=== PATIENT | female | born 1970 | race Caucasian/White ===

== ENCOUNTER 2016-11-24 10:37 | Emergency (ER) | payer SELFPAY ==
[~2016-11-24] VITALS: Ht 157.5 cm; Wt 55.9 kg
[~2016-11-24 10:37] MED LIST: ALPR2TAB3 PO; MACR100C PO; TRIA.1%T TOP
[2016-11-24 10:44] VITALS: BP 118/66; PULSE 86; RESP 16; TEMP 97.9; O2SAT 99
[2016-11-24] MEDS ORDERED: SODIUM CHLOR 0.9% 1000 ML INJ 1,000 ML IV ONE (12:15)
[2016-11-24] MEDS ORDERED: ONDANSETRON HCL 4 MG/2 ML VIAL IV PUSH ONE (12:15)
--- NOTE | 2016-11-24 12:19 | PD ---
HPI Chief Complaint: GI Complaint Time Seen by Provider: 11:57 Travel History International Travel<30 days: No Contact w/Intl Traveler<30days: No Traveled to known affect area: No History of Present Illness HPI 46-year-old female complains of headache, dizziness, nausea vomiting, generalized malaise and weakness. Patient states that the symptoms started 3 days ago. Patient states that the headache is mild aching headache diffuse over the head. Patient denies any visual change. Patient denies any neck pain. Patient denies any chest pain or shortness of breath. Patient denies abdominal pain. Patient states that she has intermittent nausea vomiting. Patient denies any focal weakness and numbness of deformity. Patient denies any recent injury. Patient denies any dysuria or frequency. Patient denies any vaginal discharge or bleeding. PFSH Past Medical History Arthritis: Yes Blood Disorders: No Anxiety: Yes Depression: Yes Cancer: No Cardiovascular Problems: No High Cholesterol: Yes Diminished Hearing: No Endocrine: No Gastrointestinal Disorders: Yes (GASTROPARESIS,HISTORY OF INTESTINAL OBSTRUCTION) GERD: Yes Genitourinary: No Hepatitis: No Hiatal Hernia: Yes (history) Immune Disorder: No Musculoskeletal: Yes Neurologic: Yes Psychiatric: Yes Reproductive: Yes (ENDOMETRIOSIS) Respiratory: Yes Immunizations Current: Yes Radiation Therapy: No Ulcer: No Tetanus Vaccination: > 5 Years Influenza Vaccination: No ?: Not LMP: "2 WEEKS AGO" : 2 Para: 2 Ovarian Cysts: Yes (2006) Dilation and Curettage (D&C): Yes Past Surgical History Abdominal Surgery: Yes (APPENDECTOMY, ENDOMETRIAL SX, ?? UMBILICAL HERNIA REPAIR) AICD: No Appendectomy: Yes Arteriovenous Shunt: No Body Medical Devices: HISTORY OF INTESTINAL OBSTRUCTION Cardiac Surgery: No Cholecystectomy: No Ear Surgery: No Endocrine Surgery: No Eye Surgery: No Genitourinary Surgery: No Gynecologic Surgery: Yes (endometriosis) Insulin Pump: No Joint Replacement: No Neurologic Surgery: No Oral Surgery: No Pacemaker: No Thoracic Surgery: No Other Surgery: Yes (ENDOMETRIAL) Social History Alcohol Use: Yes (GLASS OF WINE, EVERY OTHER DAY) Tobacco Use: No Substance Use: No Allergies-Medications (Allergen,Severity, Reaction): Coded Allergies: Reglan (Verified Allergy, Severe, MUSCLES TWITCH, 11/24/16) Reported Meds & Prescriptions Reported Meds & Active Scripts Active No Active Prescriptions or Reported Medications Review of Systems General / Constitutional: No: Fever Eyes: No: Visual changes HENT: Positive: Headaches Cardiovascular: No: Chest Pain or Discomfort Respiratory: No: Shortness of Breath Gastrointestinal: Positive: Nausea, Vomiting, No: Abdominal Pain Genitourinary: No: Dysuria Musculoskeletal: No: Pain Skin: No Rash Neurologic: No: Weakness Psychiatric: No: Depression Endocrine: No: Polydipsia Hematologic/Lymphatic: No: Easy Bruising Physical Exam Narrative GENERAL: Well-nourished, well-developed patient. SKIN: Warm and dry. HEAD: Normocephalic. EYES: No scleral icterus. No injection or drainage. Pupils 3 mm equal reactive. NECK: Supple, trachea midline. No JVD or lymphadenopathy. No meningismus CARDIOVASCULAR: Regular rate and rhythm without murmurs, gallops, or rubs. RESPIRATORY: Breath sounds equal bilaterally. No accessory muscle use. GASTROINTESTINAL: Abdomen soft, non-tender, nondistended. MUSCULOSKELETAL: No cyanosis, or edema. BACK: Nontender without obvious deformity. No CVA tenderness. Neurologic exam normal. Data Data Last Documented VS Vital Signs Date Time Temp Pulse Resp B/P Pulse Ox O2 Delivery O2 Flow Rate FiO2 11/24/16 12:26 76 16 113/65 99 Room Air 11/24/16 10:44 97.9 Orders Electrocardiogram (11/24/16 12:06) Complete Blood Count With Diff (11/24/16 12:06) Comprehensive Metabolic Panel (11/24/16 12:06) Lipase (11/24/16 12:06) Urinalysis - C+S If Indicated (11/24/16 12:06) Thyroid Stimulating Hormone (11/24/16 12:06) Chest, Single Ap (11/24/16 12:06) Ct Brain W/O Iv Contrast(Rout) (11/24/16 12:06) Iv Access Insert/Monitor (11/24/16 12:06) Ecg Monitoring (11/24/16 12:06) Oximetry (11/24/16 12:06) Ed Urine Pregnancytest Poc (11/24/16 12:06) Sodium Chlor 0.9% 1000 Ml Inj (Ns 1000 M (11/24/16 12:15) Ondansetron Inj (Zofran Inj) (11/24/16 12:15) Urine Culture (11/24/16 12:35) Labs Laboratory Tests Test 11/24/16 11/24/16 12:15 12:35 White Blood Count 7.1 TH/MM3 Red Blood Count 4.68 MIL/MM3 Hemoglobin 14.0 GM/DL Hematocrit 41.8 % Mean Corpuscular Volume 89.2 FL Mean Corpuscular Hemoglobin 29.9 PG Mean Corpuscular Hemoglobin 33.5 % Concent Red Cell Distribution Width 12.5 % Platelet Count 242 TH/MM3 Mean Platelet Volume 8.4 FL Neutrophils (%) (Auto) 66.4 % Lymphocytes (%) (Auto) 27.1 % Monocytes (%) (Auto) 3.9 % Eosinophils (%) (Auto) 2.1 % Basophils (%) (Auto) 0.5 % Neutrophils # (Auto) 4.8 TH/MM3 Lymphocytes # (Auto) 1.9 TH/MM3 Monocytes # (Auto) 0.3 TH/MM3 Eosinophils # (Auto) 0.1 TH/MM3 Basophils # (Auto) 0.0 TH/MM3 CBC Comment DIFF FINAL Differential Comment Sodium Level 139 MEQ/L Potassium Level 4.2 MEQ/L Chloride Level 102 MEQ/L Carbon Dioxide Level 27.3 MEQ/L Anion Gap 10 MEQ/L Blood Urea Nitrogen 8 MG/DL Creatinine 0.65 MG/DL Estimat Glomerular Filtration 98 ML/MIN Rate Random Glucose 91 MG/DL Calcium Level 9.7 MG/DL Total Bilirubin 0.4 MG/DL Aspartate Amino Transf 17 U/L (AST/SGOT) Alanine Aminotransferase 27 U/L (ALT/SGPT) Alkaline Phosphatase 54 U/L Total Protein 8.6 GM/DL Albumin 4.5 GM/DL Lipase 114 U/L Thyroid Stimulating Hormone 1.120 uIU/ML 3rd Gen Urine Collection Type CLEAN CATCH Urine Color YELLOW Urine Turbidity CLEAR Urine pH 6.5 Urine Specific [place] 1.005 Urine Protein NEG mg/dL Urine Glucose (UA) NEG mg/dL Urine Ketones TRACE mg/dL Urine Occult Blood NEG Urine Nitrite NEG Urine Bilirubin NEG Urine Leukocyte Esterase SMALL Urine WBC 9-14 /hpf Urine WBC Clumps OCC Urine Squamous Epithelial 0-5 /hpf Cells Urine Bacteria OCC /hpf Microscopic Urinalysis Comment CULTURE INDICATED Urine Collection Time 12:35 [facility] Medical Decision Making Medical Screen Exam Complete: Yes Emergency Medical Condition: Yes Interpretation(s) Last Impressions Chest X-Ray 11/24/16 1206 Signed Impressions: Service Date/Time: Thursday, November 24, 2016 12:21 - CONCLUSION: No acute disease. Ishan Nunez MD 1338 PM. CBC within normal limit. CMP within normal limit. UA positive WBC and bacteria. CT scan of the brain shows no acute pathology. Differential Diagnosis Differential diagnosis including viral syndrome, vertigo, electrolyte imbalance , dehydration, UTI, sepsis. Narrative Course 46-year-old female with headache, nausea vomiting, generalized malaise and weakness and dizziness. Normal saline solution 1 L IV bolus. Zofran 4 mg IV. Diagnosis Primary Impression: UTI (urinary tract infection) Qualified Code: N30.00 - Acute cystitis without hematuria Additional Impression: Viral syndrome Patient Instructions: General Instructions Additional Instructions: Bactrim DS as directed. Follow-up with personal physician. Return if worse. Med/Other Pt SpecificInfo: Prescription(s) given Scripts Sulfamethoxazole-Trimethoprim (Bactrim DS)800-160 Mg Tab1 Tab PO BID #14 TAB Prov:Marko Velasquez MD 11/24/16 Disposition: 01 DISCHARGE HOME Condition: Stable Marko Velasquez MD Nov 24, 2016 12:19
[2016-11-24 12:23] LABS: AUTOMATED NEUTROPHIL # 4.8 TH/MM3 (1.8-7.7); BASOPHIL % 0.5 % (0.0-2.0); EOSINOPHIL # 0.1 TH/MM3 (0-0.4); EOSINOPHIL % 2.1 % (0.0-4.0); HEMATOCRIT 41.8 % (35.0-46.0); HEMO FLAGS DIFF FINAL; LYMPH % 27.1 % (9.0-44.0); LYMPHOCYTE # 1.9 TH/MM3 (1.0-4.8); MEAN CELL VOLUME 89.2 FL (80.0-100.0); MEAN CORPUSCULAR HEMOGLOBIN 29.9 PG (27.0-34.0); MEAN CORPUSCULAR HGB CONC 33.5 % (32.0-36.0); MONO % 3.9 % (0.0-8.0); NEUT % 66.4 % (16.0-70.0); PLATELET COUNT 242 TH/MM3 (150-450); RED BLOOD COUNT 4.68 MIL/MM3 (4.00-5.30); RED CELL DISTRIBUTION WIDTH 12.5 % (11.6-17.2); WHITE BLOOD COUNT 7.1 TH/MM3 (4.0-11.0)
[2016-11-24 12:26] VITALS: BP 113/65; PULSE 76; RESP 16; O2SAT 99
[2016-11-24 12:30] LABS: CHLORIDE 102 MEQ/L (98-107); POTASSIUM 4.2 MEQ/L (3.5-5.1); SODIUM (NA) 139 MEQ/L (136-145)
[2016-11-24 12:34] LABS: ANION GAP 10 MEQ/L (5-15); BICARBONATE 27.3 MEQ/L (21.0-32.0); BLOOD UREA NITROGEN 8 MG/DL (7-18)
[2016-11-24 12:37] LABS: ALT (GPT) 27 U/L (10-53); AST (GOT) 17 U/L (15-37); GLOMERULAR FILTRATION RATE 98 ML/MIN (>89)
[2016-11-24 12:39] LABS: TOTAL BILIRUBIN ADULT 0.4 MG/DL (0.2-1.0)
[2016-11-24 12:40] LABS: ALKALINE PHOSPHATASE 54 U/L (45-117)
[2016-11-24 12:45] LABS: BLOOD, URINE NEG (NEG); GLUCOSE,URINE NEG (NEG); KETONE, URINE TRACE mg/dL (NEG); NITRITE,URINE NEG (NEG); PH, URINE 6.5 (5.0-8.5)
[2016-11-24 12:47] LABS: METHOD OF COLLECTION CLEAN CATCH; URINE COLOR YELLOW (YELLW/STRAW)
[2016-11-24 12:49] LABS: BACTERIA, URINE OCC /hpf; COMMENT (UR) CULTURE INDICATED; CULTURE IF INDICATED CULTURE INDICATED; SQUAMOUS EPITHELIAL CELL URINE 0-5 /hpf (0-5)
--- NOTE | 2016-11-24 13:27 | RADHPO ---
EXAM DATE/TIME: 11/24/2016 12:21 [facility] COMPARISON: No previous studies available for comparison. INDICATIONS : Short of breath MEDICAL HISTORY : None. SURGICAL HISTORY : None. ENCOUNTER: Initial ACUITY: 1 day PAIN SCORE: 4/10 LOCATION: Bilateral chest FINDINGS: A single view of the chest demonstrates the lungs to be symmetrically aerated without evidence of mas s, infiltrate or effusion. The cardiomediastinal contours are unremarkable. Osseous structures are intact. CONCLUSION: No acute disease. Ishan Nunez MD on November 24, 2016 at 13:24 Board Certified Radiologist. This report was verified electronically.
--- NOTE | 2016-11-24 13:33 | RADHPO ---
EXAM DATE/TIME: 11/24/2016 13:01 [facility] COMPARISON: CT BRAIN W/O CONTRAST, June 16, 2014, 3:07. INDICATIONS : Headache, dizziness and generalized weakness. RADIATION DOSE: 59.87 CTDIvol (mGy) MEDICAL HISTORY : None SURGICAL HISTORY : None. ENCOUNTER: Initial ACUITY: 1 day PAIN SCALE: 4/10 LOCATION: cranial TECHNIQUE: Multiple contiguous axial images were obtained of the head. Using automated exposure control and adjustment of the mA and/or kV according to patient size, radiation dose was kept as low as reasonably achievable to obtain optimal diagnostic quality images. FINDINGS: CEREBRUM: The ventricles are normal for age. No evidence of midline shift, mass lesion, hemorrha ge or acute infarction. No extra-axial fluid collections are seen. POSTERIOR FOSSA: The cerebellum and brainstem are intact. The 4th ventricle is midline. The cer ebellopontine angle is unremarkable. EXTRACRANIAL: The visualized portion of the orbits is intact. SKULL: The calvaria is intact. No evidence of skull fracture. CONCLUSION: Negative for an acute process. Tray Roblero MD FACR on November 24, 2016 at 13:24 Board Certified Radiologist. This report was verified electronically.
[2016-11-24] MEDS ORDERED: BACT800T5 PO (13:51)
[2016-11-24 14:03] VITALS: BP 106/55
--- NOTE | 2016-11-24 16:54 | EKG ---
Date Performed: 11/24/2016 Time Performed: 12:21:28 PTAGE: 46 years EKG: Sinus rhythm Prolonged QT interval Anterior T wave changes are nonspecific Borderline ECG COMPARED TO PRIOR ELECT ROCARDIOGRAM, Mild T wave changes are present. PREVIOUS TRACING : 02/25/2015 15.48 DOCTOR: Kwadwo Núñez Interpretating Date/Time 11/24/2016 16:53:29
== END 2016-11-24 14:05 | disposition home or self-care (01) ==
LOC: PHED 10:37
DX: N39.0 Urinary tract infection, site not specified (principal); B34.9 Viral infection, unspecified; R51 Headache; E78.00 Pure hypercholesterolemia, unspecified; I45.81 Long QT syndrome; R06.02 Shortness of breath
CPT/HCPCS: 70450; 71010; 80053; 81001; 83690; 84443; 84703; 85025; 87086; 93005; 96361; 96374; 99285; J2405; J7030

== ENCOUNTER 2017-11-10 12:09 | Emergency (ER) | payer BC ==
[~2017-11-10] VITALS: Ht 157.5 cm; Wt 56.0 kg
[~2017-11-10 12:09] MED LIST changes: -ALPR2TAB3 PO; +BACT800T5 PO; -MACR100C PO; -TRIA.1%T TOP
[2017-11-10 12:17] VITALS: BP 150/81; PULSE 97; RESP 18; TEMP 97.8; O2SAT 99
[2017-11-10] MEDS ORDERED: TYLE325T PO (12:30)
[2017-11-10] MEDS ORDERED: SODIUM CHLOR 0.9% 1000 ML INJ 1,000 ML IV SCH (12:39)
[2017-11-10] MEDS ORDERED: SODIUM CHLORIDE 0.9% FLUSH 10 ML FLUSH IV FLUSH PRN (12:45)
[2017-11-10] MEDS ORDERED: ALUMINUM/MAGNESIUM/SIMETH 30 ML CUP PO ONE (12:45)
[2017-11-10] MEDS ORDERED: DICYCLOMINE HCL 10 MG CAP PO ONE (12:45)
[2017-11-10] MEDS ORDERED: LIDOCAINE VISCOUS 2% SOLN 15 ML UDC PO ONE (12:45)
[2017-11-10] MEDS ORDERED: diphenhydrAMINE HCL 50 MG/ML VIAL IV PUSH ONE (12:45)
[2017-11-10] MEDS ORDERED: PROCHLORPERAZINE INJ 10 MG/2 ML VIAL IV PUSH ONE (12:45)
[2017-11-10] MEDS ORDERED: FAMOTIDINE 20 MG/2 ML VIAL IV PUSH ONE (12:45)
--- NOTE | 2017-11-10 12:51 | PD ---
HPI Chief Complaint: Abdominal Pain Time Seen by Provider: 12:39 Travel History International Travel<30 days: No Contact w/Intl Traveler<30days: No Traveled to known affect area: No History of Present Illness HPI 46-year-old female arrives complaining of abdominal pain since last night. She is a history of gastroparesis. She states the pain is severe. Decreased appetite is reported as an associated symptom. No diarrhea. No fever. Timing constant. No abnormal vaginal bleeding or discharge. PFSH Past Medical History Arthritis: Yes Blood Disorders: No Anxiety: Yes Depression: Yes Cancer: No Cardiovascular Problems: No High Cholesterol: Yes Diminished Hearing: No Endocrine: No Gastrointestinal Disorders: Yes (GASTROPARESIS,HISTORY OF INTESTINAL OBSTRUCTION) GERD: Yes Genitourinary: No Hepatitis: No Hiatal Hernia: Yes (history) Immune Disorder: No Musculoskeletal: Yes Neurologic: Yes Psychiatric: Yes Reproductive: Yes (ENDOMETRIOSIS) Respiratory: Yes Immunizations Current: Yes Radiation Therapy: No Ulcer: No Tetanus Vaccination: Unknown Influenza Vaccination: No ?: Not LMP: 10/05/17 : 2 Para: 2 Ovarian Cysts: Yes (2006) Dilation and Curettage (D&C): Yes Past Surgical History Abdominal Surgery: Yes (APPENDECTOMY, ENDOMETRIAL SX, ?? UMBILICAL HERNIA REPAIR) AICD: No Appendectomy: Yes Arteriovenous Shunt: No Body Medical Devices: HISTORY OF INTESTINAL OBSTRUCTION Cardiac Surgery: No Cholecystectomy: No Ear Surgery: No Endocrine Surgery: No Eye Surgery: No Genitourinary Surgery: No Gynecologic Surgery: Yes (endometriosis) Insulin Pump: No Joint Replacement: No Neurologic Surgery: No Oral Surgery: No Pacemaker: No Thoracic Surgery: No Other Surgery: Yes (ENDOMETRIAL) Social History Alcohol Use: Yes (GLASS OF WINE, EVERY OTHER DAY) Tobacco Use: No Substance Use: No Allergies-Medications (Allergen,Severity, Reaction): Coded Allergies: metoclopramide (Verified Allergy, Severe, MUSCLES TWITCH, 11/10/17) Reported Meds & Prescriptions Reported Meds & Active Scripts Active Bentyl (Dicyclomine HCl) 10 Mg Cap 10 Mg PO TID PRN Phenergan (Promethazine HCl) 25 Mg Tablet 25 Mg PO Q6H PRN Bactrim DS (Sulfamethoxazole-Trimethoprim) 800-160 Mg Tab 1 Tab PO BID Reported Tylenol (Acetaminophen) 325 Mg Tab 650 Mg PO Q4H PRN Review of Systems Except as stated in HPI: all other systems reviewed are Neg General / Constitutional: No: Fever Cardiovascular: No: Chest Pain or Discomfort Respiratory: No: Shortness of Breath Physical Exam Narrative GENERAL: 46-year-old female well-nourished and well-developed mild distress secondary to pain and/or anxiety SKIN: Warm and dry. HEAD: Atraumatic. Normocephalic. EYES: Pupils equal and round. No scleral icterus. No injection or drainage. ENT: No nasal bleeding or discharge. Mucous membranes pink and moist. NECK: Trachea midline. No JVD. CARDIOVASCULAR: Regular rate and rhythm. RESPIRATORY: No accessory muscle use. Clear to auscultation. Breath sounds equal bilaterally. GASTROINTESTINAL: Abdomen is soft. There is diffuse nonspecific tenderness. There is no distention. MUSCULOSKELETAL: Extremities without clubbing, cyanosis, or edema. No obvious deformities. NEUROLOGICAL: Awake and alert. No obvious cranial nerve deficits. Motor grossly within normal limits. Five out of 5 muscle strength in the arms and legs. Normal speech. PSYCHIATRIC: Cooperative. Pleasant. Data Data Last Documented VS Vital Signs Date Time Temp Pulse Resp B/P (MAP) Pulse Ox O2 Delivery O2 Flow Rate FiO2 11/10/17 14:19 88 17 141/78 (99) 96 11/10/17 13:54 Room Air 11/10/17 12:17 97.8 vital signs reviewed Orders Orders Urinalysis - C+S If Indicated (11/10/17 12:39) Iv Access Insert/Monitor (11/10/17 12:39) Ecg Monitoring (11/10/17 12:39) Oximetry (11/10/17 12:39) Sodium Chlor 0.9% 1000 Ml Inj (Ns 1000 M (11/10/17 12:39) Sodium Chloride 0.9% Flush (Ns Flush) (11/10/17 12:45) Famotidine Inj (Pepcid Inj) (11/10/17 12:45) Dicyclomine (Bentyl) (11/10/17 12:45) Al-Mag Hy-Si 40-40-4 Mg/Ml Liq (Mag-Al P (11/10/17 12:45) Lidocaine 2% Viscous (Xylocaine 2% Visco (11/10/17 12:45) Ed Urine Pregnancytest Poc (11/10/17 12:39) Diphenhydramine Inj (Benadryl Inj) (11/10/17 12:45) Prochlorperazine Inj (Compazine Inj) (11/10/17 12:45) Ed Discharge Order (11/10/17 14:09) Labs Laboratory Tests Test 11/10/17 13:50 Urine Collection Type CLEAN CATCH Urine Color YELLOW Urine Turbidity CLEAR Urine pH 8.0 Urine Specific [place] 1.010 Urine Protein NEG mg/dL Urine Glucose (UA) NEG mg/dL Urine Ketones TRACE mg/dL Urine Occult Blood NEG Urine Nitrite NEG Urine Bilirubin NEG Urine Leukocyte Esterase MOD Urine WBC 6-8 /hpf Urine Squamous Epithelial Cells 0-5 /hpf Urine Bacteria FEW /hpf Microscopic Urinalysis Comment CULT NOT INDICATED MDM Medical Decision Making Medical Screen Exam Complete: Yes Emergency Medical Condition: Yes Medical Record Reviewed: Yes Differential Diagnosis Gastritis, pancreatitis, appendicitis, acute cholecystitis, ascending cholangitis, AAA, perforated viscous, mesenteric ischemia, hepatitis, cystitis, hydronephrosis/hydroureter/nephroureter calculus, mesenteric adenitis, biliary colic Narrative Course after 2 attempts to establish IV access the patient refused additional attempts. She preferred oral pain management which was employed. Urinalysis reveals WBCs and leukocyte esterase concerning for potential UTI potentially trigger for her gastroparesis. Scripts as below. Diagnosis Primary Impression: UTI (urinary tract infection) Qualified Codes: N30.00 - Acute cystitis without hematuria Additional Impression: Gastroparesis Referrals: Miguel Scott MD 2 days Med/Other Pt SpecificInfo: Prescription(s) given Scripts Dicyclomine (Bentyl) 10 Mg Cap 10 MG PO TID Y for Bowel Management, #12 CAP 0 Refills Prov: Haseeb Mejía MD 11/10/17 Promethazine (Phenergan) 25 Mg Tablet 25 MG PO Q6H Y for ABDOMINAL CRAMPING, #12 TAB 0 Refills Prov: Haseeb Mejía MD 11/10/17 Sulfamethoxazole-Trimethoprim (Bactrim DS) 800-160 Mg Tab 1 TAB PO BID for Infection, #6 TAB 0 Refills Prov: Haseeb Mejía MD 11/10/17 Disposition: 01 DISCHARGE HOME Condition: Stable Haseeb Mejía MD Nov 10, 2017 12:51
[2017-11-10 13:53] LABS: BILIRUBIN, URINE NEG (NEG); BLOOD, URINE NEG (NEG); GLUCOSE,URINE NEG (NEG); KETONE, URINE TRACE mg/dL (NEG); NITRITE,URINE NEG (NEG); URINE LEUKOCYTE ESTERASE MOD (NEG)
[2017-11-10 13:54] VITALS: O2SAT 98
[2017-11-10 14:02] LABS: URINE COLOR YELLOW (YELLW/STRAW)
[2017-11-10 14:04] LABS: BACTERIA, URINE FEW /hpf; SQUAMOUS EPITHELIAL CELL URINE 0-5 /hpf (0-5)
[2017-11-10] MEDS ORDERED: PROM25TA10 PO (14:08)
[2017-11-10] MEDS ORDERED: DICY10 PO (14:08)
[2017-11-10] MEDS ORDERED: BACT800T5 PO (14:08)
[2017-11-10 14:19] VITALS: BP 141/78
== END 2017-11-10 14:20 | disposition home or self-care (01) ==
LOC: PHED 12:09
DX: N30.00 Acute cystitis without hematuria (principal); K31.84 Gastroparesis; E78.00 Pure hypercholesterolemia, unspecified; F32.9 Major depressive disorder, single episode, unspecified; K21.9 Gastro-esophageal reflux disease without esophagitis
CPT/HCPCS: 81001; 84703; 99283

== ENCOUNTER 2018-08-03 11:04 | Inpatient (IN) ==
[2018-08-03] MEDS ORDERED: Morphine Inj 4 MG/ML Vial IV.PUSH ONE ×2 (11:28→14:55)
[2018-08-03] MEDS ORDERED: Sod Chloride 0.9% Inj 1,000 ML IV.SIG ONE (11:28)
--- NOTE | 2018-08-03 11:32 | ED ---
HPI General Chief complaint: Abdominal Pain Stated complaint: Abd pain/Vomiting/Dizziness Time Seen by Provider: 08/03/18 11:19 History of Present Illness HPI narrative: 47-year-old female presents to the emergency department for evaluation of abdominal pain that began last night. Patient states that the pain was sudden onset. Describes it as a sharp pain in her epigastric region however states she also has diffuse abdominal pain. States that she has had nausea and multiple episodes of vomiting since the pain began. She has been unable to keep down any food or fluids. Denies any diarrhea or constipation, black or bloody stool. States that this morning she had chills and subjective fever. States that she is also having lightheadedness associated with the significant pain. States that she has had these pains intermittently for over 6 months however they typically resolve on their own after a few hours. States that the pain she is feeling today is much more intense and prolonged. Previous abdominal surgeries include appendectomy and surgery for endometriosis. Denies , last menstrual period [address] Burdick. No other complaints. Related Data Allergies Allergy/AdvReac Type Severity Reaction Status Date / Time metoclopramide Allergy Severe MUSCLES Verified 11/10/17 12:29 TWITCH Review of Systems ROS: all other systems reviewed are negative PMFSH Medical History Medical History Endometriosis (Acute) Social History Social History Substance History: No History of Abuse Second Hand Smoke Exposure: No Smoking Status: Never smoker How Often Do You Have a Drink Containing Alcohol: Never Recent Travel in [facility] within the Last 8 Weeks: No Recent Out of Country Travel within the Last 8 Weeks: No Exam Narrative Exam Narrative: GENERAL: Well-nourished and well-developed pleasant patient in no acute distress who is nontoxic appearing. SKIN: Warm and dry. HEAD: Normocephalic and atraumatic. EYES: No injection, drainage, or hyphema noted. PERRLA. EOMI. ENT: No nasal drainage noted. Oropharynx is clear. NECK: Supple and the trachea is midline. CARDIOVASCULAR: Regular rate and rhythm. RESPIRATORY: Breath sounds are equal bilaterally with no accessory muscle use, wheezing, rhonchi, or crackles. GASTROINTESTINAL: Diffuse abdominal tenderness worse in the epigastric region. No rebound tenderness or guarding. Abdomen is soft and nondistended. MUSCULOSKELETAL: No obvious deformities, swelling, cyanosis, or ecchymosis is present throughout the upper and lower extremities. Patient has full range of motion without any signs of neurovascular compromise. Distal pulses are 2+ throughout. NEUROLOGICAL: Awake, alert, and oriented. Normal speech and gait. Cranial nerves are grossly intact. Course Initial Documented Vital Signs Temperature 97.4 F L 08/03/18 11:17 Pulse Rate 93 H 08/03/18 11:17 Respiratory Rate 22 08/03/18 11:17 Blood Pressure 127/58 L 08/03/18 11:17 Pulse Oximetry 100 08/03/18 11:17 Last Documented Vital Signs Temperature 97.4 F L 08/03/18 11:17 Pulse Rate 72 08/03/18 15:00 Respiratory Rate 18 08/03/18 15:00 Blood Pressure 130/57 L 08/03/18 15:00 Pulse Oximetry 99 08/03/18 15:00 Medical Decision Making VÍCTOR Attestation VÍCTOR supervised visit: Yes Attestation: I, Dr. Mejía, have reviewed the advance practice practitioner's documentation and am in agreement, met with the patient face to face, made the diagnosis, and the medical decision making was done by me. *My assessment and Findings: Patient is small bowel obstruction. Abdomen is diffusely tender though soft. There has been one episode of vomiting following the initial 4 mg IV Zofran dose. At this point NG tube is considered reasonably safely referrable. Case discussed with Dr. Bangura. [facility] Narrative Medical decision making narrative: total bilirubin and AST. Otherwise unremarkable.47-year-old female presents to the emergency department for evaluation of abdominal pain, nausea and vomiting. Patient is afebrile, vital signs are stable. Patient has diffuse abdominal tenderness however no peritoneal signs. IV access is obtained, labs been drawn and sent. Patient is placed on cardiac telemetry and pulse oximetry monitoring. Patient is administered IV fluids, Zofran 4 mg IV and morphine 4 mg IV. In the patient's chart it notes that the patient has a history of gastroparesis however the patient states that she has never been diagnosed with this previously. ED urine test is negative. CBC shows elevated white blood cell count of 17, otherwise unremarkable. CMP shows slightly decreased bicarb of 18.8, slightly elevated LFTs otherwise unremarkable. Urinalysis shows significant ketones and 30 protein with some blood and some white blood cells. No evidence of UTI. CT of the abdomen and pelvis shows distal small bowel obstruction with a focal transition point within the right hemipelvis involving the distal ileum approaching the terminal ileum. No obstructing mass, no free air, trace ascites. Patient reassessed and states she has vomited twice while here in the ED. Patient will be admitted to the hospitalist service. Medical Screen Exam Complete: Yes Emergency Medical Condition: Yes Differential Diagnosis Differential Diagnosis: Gastroenteritis versus colitis versus gastritis versus endometriosis versus gastroparesis Lab Data Result diagrams: 08/03/18 12:00 08/03/18 12:00 POC Results POC Urine Results Negative Lab Results 08/03/18 08/03/18 08/03/18 Range/Units 12:00 12:00 12:30 WBC 17.0 H (4.0-11.0) th/mm3 RBC 4.91 (4.00-5.30) mil/mm3 Hgb 14.9 (11.6-15.3) gm/dL Hct 44.7 (35.0-46.0) % MCV 91.1 (80.0-100.0) fL MCH 30.4 (27.0-34.0) pg MCHC 33.4 (32.0-36.0) % RDW 13.6 (11.6-17.2) % Plt Count 267 (150-450) th/mm3 MPV 9.3 (7.0-11.0) fL Neut % (Auto) 92.4 H (16.0-70.0) % Lymph % (Auto) 5.2 L (9.0-44.0) % [place] % (Auto) 2.3 (0.0-8.0) % Eos % (Auto) 0.0 (0.0-4.0) % Baso % (Auto) 0.1 (0.0-2.0) % Neut # (Auto) 15.7 H (1.8-7.7) th/mm3 Lymph # (Auto) 0.9 L (1.0-4.8) th/mm3 [place] # (Auto) 0.4 (0.0-0.9) th/mm3 Eos # (Auto) 0.0 (0.0-0.4) th/mm3 Baso # (Auto) 0.0 (0.0-0.2) th/mm3 WBC Differential . Differential Comment Auto diff final Sodium 135 L (136-145) meq/L Potassium 4.8 (3.5-5.1) meq/L Chloride 103 (98-107) meq/L Carbon Dioxide 18.8 L (21.0-32.0) meq/L Anion Gap 13 (5-15) meq/L BUN 9 (7-18) mg/dL Creatinine 0.84 (0.50-1.00) mg/dL Estimated GFR 72 L (>89) mL/min Random Glucose 111 H (74-106) mg/dL Calcium 9.8 (8.5-10.1) mg/dL Total Bilirubin 1.1 H (0.2-1.0) mg/dL AST 42 H (15-37) U/L ALT 24 (10-53) U/L Alkaline Phosphatase 58 (45-117) U/L Total Protein 9.0 H (6.4-8.2) g/dL Albumin 4.4 (3.4-5.0) g/dL Lipase 116 (73-393) U/L Urine Color Yellow (Yellw/Straw) Urine Clarity Hazy H (Clear) Urine pH 7.0 (5.0-8.5) Ur Specific [place] 1.025 (1.002-1.035) Urine Protein 30 H (Neg-Trace) mg/dL Urine Glucose (UA) Negative (Negative) mg/dL Urine Ketones 80 or greater H (Negative) mg/dL Urine Occult Blood Negative (Negative) Urine Nitrate Negative (Negative) Urine Bilirubin Negative (Negative) Urine Urobilinogen Less than 2 (Less than 2) mg/dL Ur Leukocyte Esterase Trace H (Negative) Urine RBC 6 H (0-3) /hpf Urine WBC 3 (0-5) /hpf Ur Squamous Epith Cells 3 (0-5) /hpf Urine Bacteria Rare H (None) /hpf Urine Mucus Few H (Occasional) /lpf Micro UA Comment Culture not ind Ur Microscopic Review Not Reportable Urine Culture Comments Culture not ind Imaging Data Radiologist's impression: Abdomen/Pelvis CT 08/03/18 11:28 CONCLUSION: 1. Distal small bowel obstruction with a focal transition point within the right hemipelvis involving the distal ileum approaching the terminal ileum. No obstructing mass is observed. No free air. Trace amount of ascites. Discharge Plan Discharge Disposition Patient Disposition: 30 Still Patient Discharge Details Diagnosis: Small bowel obstruction Physicians Team ED Provider: Haseeb Mejía ED Midlevel Provider: Jenn Sheehan Primary Care Provider: Primary Care [place] Cervantes Attending Provider: Jack Bangura Other Providers: Waqas Reina Discharge Interventions Interventions: Vital Signs Last Done: 08/03/18 15:00 Status ED Status: Admitted Patient
[2018-08-03 12:22] LABS: Baso % (Auto) 0.1 % (0.0-2.0); Hematocrit 44.7 % (35.0-46.0); Hemoglobin 14.9 gm/dL (11.6-15.3); Lymph # (Auto) 0.9 th/mm3 (1.0-4.8); Lymph % (Auto) 5.2 % (9.0-44.0); Mean Corpuscular HGB Conc 33.4 % (32.0-36.0); Mean Corpuscular Hemoglobin 30.4 pg (27.0-34.0); Mean Corpuscular Volume 91.1 fL (80.0-100.0); Mean Platelet Volume 9.3 fL (7.0-11.0); Mono # (Auto) 0.4 th/mm3 (0.0-0.9); Mono % (Auto) 2.3 % (0.0-8.0); Neut # (Auto) 15.7 th/mm3 (1.8-7.7); Neut % (Auto) 92.4 % (16.0-70.0); Platelet Count 267 th/mm3 (150-450); Red Blood Count 4.91 mil/mm3 (4.00-5.30); Red Cell Distribution Width 13.6 % (11.6-17.2)
[2018-08-03 13:05] LABS: Albumin 4.4 g/dL (3.4-5.0); Anion Gap 13 meq/L (5-15); Aspartate Aminotransferase 42 U/L (15-37); Blood Urea Nitrogen 9 mg/dL (7-18); Calcium 9.8 mg/dL (8.5-10.1); Carbon Dioxide 18.8 meq/L (21.0-32.0); Chloride 103 meq/L (98-107); Glomerular Filtration Rate 72 mL/min (>89); Glucose,Random 111 mg/dL (74-106); Lipase 116 U/L (73-393); Sodium 135 meq/L (136-145)
[2018-08-03 13:06] LABS: Alanine Aminotransferase 24 U/L (10-53)
[2018-08-03 13:08] LABS: Alkaline Phosphatase 58 U/L (45-117)
[2018-08-03 13:10] LABS: Potassium 4.8 meq/L (3.5-5.1)
[2018-08-03 13:54] LABS: Bacteria,Urine Rare /hpf; Bilirubin,Urine Negative (Negative); Clarity,Urine Hazy (Clear); Color,Urine Yellow (Yellw/Straw); Glucose,Urine (UA) Negative (Negative); Leukocyte Esterase,Urine Trace (Negative); Mucus,Urine Few /lpf (Occasional); Nitrite,Urine Negative (Negative); Specific Gravity,Urine 1.025 (1.002-1.035); Squamous Epithelial Cell,Urine 3 /hpf (0-5)
--- NOTE | 2018-08-03 14:35 | CT ---
EXAM DATE: 08/03/2018 2:29 PM EDT AGE/SEX: 47 years / Female INDICATIONS: Nausea, vomiting and upper abdominal pain. CLINICAL DATA: This is the patient's initial encounter. Patient reports that signs and symptoms have been present for 1 day and indicates a pain score of 5/10. MEDICAL/SURGICAL HISTORY: None. Appendectomy. ORAL CONTRAST: No oral contrast ingested. RADIATION DOSE: 6.77 CTDI (mGy) COMPARISON: [facility] – [place], CT ABDOMEN & PELVIS W CONTRAST, 09/29/2012. . TECHNIQUE: Multiple contiguous axial images were obtained through the abdomen and pelvis following b olus infusion of 95 ml Omnipaque 350 (iohexol) nonionic water-soluble contrast as a single exam dos e. No oral contrast ingested. Using automated exposure control and adjustment of the mA and/or kV ac cording to patient size, radiation dose was kept as low as reasonably achievable to obtain optimal di agnostic quality images. DICOM format image data is available electronically for review and comparis on. FINDINGS: Lower Lungs: The visualized lower lungs are clear. Liver: The liver has a homogeneous density without space-occupying lesion. There is no dilation of th e biliary tree. Gallbladder is unremarkable. Spleen: Homogeneous density without enlargement. Pancreas: Unremarkable without mass or calcification. Kidneys: Normal in size and shape. No evidence of mass or hydronephrosis. Adrenal Glands: Unremarkable. Aorta: The aorta and proximal iliac vessels are grossly unremarkable without aneurysmal dilation. Bowel/Mesentery: The small bowel loops are diffusely dilated and fluid-filled. There is a focal pederson sition point within the right hemipelvis without a discrete mass or intussusception. This involves th e distal ileum approaching the terminal ileum. There is a trace amount of ascitic fluid adjacent to t he liver and deep within the pelvis. No free air. The colon is decompressed.. Abdominal Wall: Intact. Retroperitoneum: No evidence of adenopathy in the retrocrural, para-aortic, or deep pelvic regions. Bladder: Contours are smooth. Reproductive Organs: No abnormal masses or calcifications seen. Inguinal: The inguinal region is unremarkable without evidence of adenopathy. Bony Structures: Unremarkable. CONCLUSION: 1. Distal small bowel obstruction with a focal transition point within the right hemipelvis involvin g the distal ileum approaching the terminal ileum. No obstructing mass is observed. No free air. Trac e amount of ascites. Electronically signed by: Antony Deshpande MD 08/03/2018 2:34 PM EDT
[2018-08-03] MEDS ORDERED: Sod Chloride 0.9% Inj 1,000 ML IV.SIG SCH (14:45)
[2018-08-03] MEDS ORDERED: Morphine Sulfate Inj 2 MG/ML Vial IV.PUSH PRN (15:43)
[2018-08-03] MEDS ORDERED: Naloxone Inj 0.4 MG/ML Vial IV.PUSH PRN (15:43)
[2018-08-03] MEDS ORDERED: Sod Chloride 0.9% Inj 1,000 ML IV.CONT SCH (15:45)
[2018-08-03] MEDS: Morphine Inj 4 MG/ML Vial IV.PUSH PRN ×2 (17:19→20:57)
--- NOTE | 2018-08-03 17:44 | P.HPIM ---
History of Present Illness Primary Care Physician: No Primary Care Physician History of Present Illness: 39-year-old female with a history of endometriosis status post oratory laparotomy in the past who presents constant sharp nonradiating epigastric pain which began around 8 PM last night. She also endorses intractable nausea, nonbloody ykh-omzzak-mymoek emesis, "hot flashes" however no measured fevers. Denies diarrhea or constipation. Denies chest pain or shortness of breath. Last menstrual period was 3 weeks ago. She reports possibly having an appendectomy at the time of her exploratory laparotomy in the past but she is not sure. Inpatient Certification: I certify that the inpatient services were ordered in accordance with Medicare regulations governing the order. This includes certification that hospital inpatient services are reasonable and necessary and in the case of services not specified as inpatient-only under 42 CFR 419.22(n), that they are appropriately provided as inpatient services in accordance to with the 2-midnight benchmark under 43 CFR 412.3(e) Estimated Total Length of Stay (Days): 2 Plans for Post Hospital Care: Not yet determined Review of Systems All other systems reviewed negative except as stated in HPI PMFSH - History History Provided By: Patient, Family Member - Medical History Medical History: Medical History (Last Updated 08/03/18 @ 12:04 by Katey Todd) Endometriosis - Surgical History Surgical History: Surgical History (Last Updated 08/03/18 @ 17:37 by Jack Bangura MD) H/O exploratory laparotomy - Family History Family History: Family History (Last Updated 08/03/18 @ 17:37 by Jack Bangura MD) Father Diabetes Mother Family estrangement - Tobacco History Second Hand Smoke Exposure: No Tobacco Use In Past 30 Days: No Smoking Status: Never smoker - Alcohol History How Often Do You Have a Drink Containing Alcohol: Never - Substance Use History Substance History: No History of Abuse - Travel History Recent Travel in the [place] Within the Last 8 Weeks: No Recent Travel Out of the Country Within the Last 8 Weeks: No - Immunization History Tetanus Immunization: <5 Years Hx Influenza Vaccine This Season: No Medications and Allergies Active Medications: Active Medications Sodium Chloride (Ns Inj) 1,000 mls @ 0 mls/hr IV.SIG BOLUS FEROZ Last Admin: 08/03/18 15:21 Dose: 1,000 mls/hr Sodium Chloride (Ns Inj) 1,000 mls @ 100 mls/hr IV.CONT .Q10H FEROZ Last Admin: 08/03/18 17:10 Dose: 100 mls/hr Morphine Sulfate (Morphine Inj) 4 mg IV.PUSH Q3H PRN PRN Reason: PAIN 6-10;IF UNABLE TO TAKE PO Last Admin: 08/03/18 17:19 Dose: 4 mg Morphine Sulfate (Morphine Inj) 4 mg IV.PUSH Q1H PRN PRN Reason: Pain Scale 7-10 (Intractable) Morphine Sulfate (Morphine Inj) 2 mg IV.PUSH Q3H PRN PRN Reason: PAIN 3-5; IF UABLE TO TAKE PO Naloxone HCl (Narcan Inj) 0.4 mg IV.PUSH UNSCH PRN PRN Reason: SEE LABEL COMMENTS Ondansetron HCl (Zofran Inj) 4 mg IV.PUSH Q6H PRN PRN Reason: NAUSEA OR VOMITING Sodium Chloride (Ns Flush) 2 ml IV.FLUSH PRN PRN PRN Reason: FLUSH AFTER USING IV ACCESS Last Admin: 08/03/18 12:02 Dose: 2 ml Allergies Allergy/AdvReac Type Severity Reaction Status Date / Time metoclopramide Allergy Severe MUSCLES Verified 11/10/17 12:29 TWITCH Exam Vital signs: Vital Signs 08/03/18 11:17 08/03/18 12:35 08/03/18 15:00 Temperature 97.4 F L Pulse Rate 93 H 70 72 Respiratory Rate 22 18 18 Blood Pressure 127/58 L 106/53 L 130/57 L Pulse Oximetry 100 99 99 08/03/18 16:00 08/03/18 16:30 Temperature 97.7 F Pulse Rate 70 70 Respiratory Rate 18 18 Blood Pressure 138/64 129/61 Pulse Oximetry 97 100 Intake & Output 08/02/18 08/03/18 08/03/18 18:59 06:59 18:59 Intake Total 1000 / 1000 Balance 1000 / 1000 Weight 57.153 kg Intake: IV 1000 / 1000 NS Inj 1,000 ML @ Wide Open IV. 1000 / 1000 SIG BOLUS ONE Rx#:[id number] Narrative: GENERAL: Patient sitting up in bed. Appears uncomfortable. SKIN: Warm and dry. HEAD: Atraumatic. Normocephalic. EYES: Pupils equal and round. No scleral icterus. No injection or drainage. ENT: No nasal bleeding or discharge. Mucous membranes pink and moist. NECK: Trachea midline. No JVD. CARDIOVASCULAR: Regular rate and rhythm. RESPIRATORY: No accessory muscle use. Clear to auscultation. Breath sounds equal bilaterally. GASTROINTESTINAL: Abdomen soft, nondistended. Hepatic and splenic margins not palpable. Tenderness to moderate palpation diffusely. Patient has received pain medication. MUSCULOSKELETAL: Extremities without clubbing, cyanosis, or edema. No obvious deformities. NEUROLOGICAL: Awake and alert. No obvious cranial nerve deficits. Motor grossly within normal limits. Five out of 5 muscle strength in the arms and legs. Normal speech. PSYCHIATRIC: Appropriate mood and affect; insight and judgment normal. Results - Labs CBC & Chem 7: 08/03/18 12:00 08/03/18 12:00 Labs: Short CBC 08/03/18 Range/Units 12:00 WBC 17.0 H (4.0-11.0) th/mm3 Hgb 14.9 (11.6-15.3) gm/dL Hct 44.7 (35.0-46.0) % Plt Count 267 (150-450) th/mm3 BMP 08/03/18 12:00 Sodium 135 L Potassium 4.8 Chloride 103 Carbon Dioxide 18.8 L BUN 9 Creatinine 0.84 Calcium 9.8 Liver Function 08/03/18 Range/Units 12:00 Total Bilirubin 1.1 H (0.2-1.0) mg/dL AST 42 H (15-37) U/L ALT 24 (10-53) U/L Alkaline Phosphatase 58 (45-117) U/L Albumin 4.4 (3.4-5.0) g/dL Urine 08/03/18 Range/Units 12:30 Urine Color Yellow (Yellw/Straw) Urine Clarity Hazy H (Clear) Urine pH 7.0 (5.0-8.5) Ur Specific [place] 1.025 (1.002-1.035) Urine Protein 30 H (Neg-Trace) mg/dL Urine Glucose (UA) Negative (Negative) mg/dL - Imaging Impressions Abdomen/Pelvis CT 08/03/18 11:28 CONCLUSION: 1. Distal small bowel obstruction with a focal transition point within the right hemipelvis involving the distal ileum approaching the terminal ileum. No obstructing mass is observed. No free air. Trace amount of ascites. Caprini VTE Risk Assessment Caprini VTE Risk Assessment: No/Low Risk (score <= 1) Caprini Risk Assessment Model: Point Value = 1 Point Value = 2 Point Value = 3 Point Value = 5 Age 41-60 Minor surgery BMI > 25 kg/m2 Swollen legs Varicose veins or History of unexplained or recurrent spontaneous Oral contraceptives or hormone replacement Sepsis (< 1 month) Serious lung disease, including pneumonia (< 1 month) Abnormal pulmonary function Acute myocardial infarction Congestive heart failure (< 1 month) History of inflammatory bowel disease Medical patient at bed rest Age 61-74 Arthroscopic surgery Major open surgery (> 45 min) Laparoscopic surgery (> 45 min) Malignancy Confined to bed (> 72 hours) Immobilizing plaster cast Central venous access Age >= 75 History of VTE Family history of VTE Factor V Leiden Prothrombin [id number] Lupus anticoagulant Anticardiolipin antibodies Elevated serum homocysteine Heparin-induced thrombocytopenia Other congenital or acquired thrombophilia Stroke (< 1 month) Elective arthroplasty Hip, pelvis, or leg fracture Acute spinal cord injury (< 1 month) Prophylaxis Regimen: Total Risk Factor Score Risk Level Prophylaxis Regimen 0-1 Low Early ambulation 2 Moderate Order ONE of the following: *Sequential Compression Device (SCD) *Heparin 5000 units SQ BID 3-4 Higher Order ONE of the following medications: *Heparin 5000 units SQ TID *Enoxaparin/Lovenox 40 mg SQ daily (WT < 150 kg, CrCl > 30 mL/min) *Enoxaparin/Lovenox 30 mg SQ daily (WT < 150 kg, CrCl > 10-29 mL/min) *Enoxaparin/Lovenox 30 mg SQ BID (WT < 150 kg, CrCl > 30 mL/min) AND/OR *Sequential Compression Device (SCD) 5 or more Highest Order ONE of the following medications: *Heparin 5000 units SQ TID (Preferred with Epidurals) *Enoxaparin/Lovenox 40 mg SQ daily (WT < 150 kg, CrCl > 30 mL/min) *Enoxaparin/Lovenox 30 mg SQ daily (WT < 150 kg, CrCl > 10-29 mL/min) *Enoxaparin/Lovenox 30 mg SQ BID (WT < 150 kg, CrCl > 30 mL/min) AND *Sequential Compression Device (SCD) Assessment and Plan - Plan //Small bowel obstruction with suspected transition point on CT CT abdomen and pelvis personally reviewed which shows right lower quadrant transition point around the erythema of the cecum. Patient is uncertain about history of appendectomy. = History of endometriosis, however not currently on her period = We will place patient n.p.o., IV fluids. Consult gastroenterology //Leukocytosis. Likely secondary to nausea and vomiting. Evidence of acute infection. //Elevated bilirubin. No right upper quadrant tenderness. Could be Gilbert's syndrome. Will check bilirubin components. //metabolic acidosis. //Starvation ketosis = Anion gap 13., Dioxide 18.8. Likely secondary to ketosis as seen on urine Discussed Condition With: Patient, nurse, ED physician.
--- NOTE | 2018-08-03 19:06 | P.CONGS ---
[facility] Gen Surgery Consult Note Consult date: 08/03/18 Reason for consult: abdominal pain Requesting physician: Jack Bangura Narrative: This is a 47 year old female with a past medical history of endometriosis and gastropareses who has had on and off abdominal pain for about 12 months. She reports that she was fine yesterday until yesterday evening after she ate a large meal. She developed abdominal pain, nausea and vomiting. A CT abdomen/ pelvis was obtained which shows a distal small bowel obstruction with focal transition point in the RIGHT hemipelvis involving the distal ileum. Her WBC is elevated at 17,000. She last had a normal bowel movement yesterday. She has had an EGD in the past but never a colonoscopy. A General Surgery consultation has been requested. Review of Systems All other systems reviewed negative except as stated in [facility] - History History Provided By: Patient - Medical History Medical History: Medical History (Last Updated 08/03/18 @ 19:04 by HARINDER Mccarty) Endometriosis Gastroparesis Umbilical hernia - Surgical History Surgical History: Surgical History (Last Updated 08/03/18 @ 19:04 by HARINDER Mccarty) H/O ovarian cystectomy H/O umbilical hernia repair History of appendectomy History of salpingectomy - Family History Family History: Family History (Last Updated 08/03/18 @ 17:37 by Jack Bangura MD) Father Diabetes Mother Family estrangement - Tobacco History Second Hand Smoke Exposure: No Tobacco Use In Past 30 Days: No Smoking Status: Never smoker - Alcohol History How Often Do You Have a Drink Containing Alcohol: Never - Substance Use History Substance History: No History of Abuse - Travel History Recent Travel in the [place] Within the Last 8 Weeks: No Recent Travel Out of the Country Within the Last 8 Weeks: No - Immunization History Tetanus Immunization: <5 Years Hx Influenza Vaccine This Season: No Medications and Allergies Allergies Allergy/AdvReac Type Severity Reaction Status Date / Time metoclopramide Allergy Severe MUSCLES Verified 11/10/17 12:29 TWITCH Active Medications: Active Medications Sodium Chloride (Ns Inj) 1,000 mls @ 0 mls/hr IV.SIG BOLUS FEROZ Last Admin: 08/03/18 15:21 Dose: 1,000 mls/hr Potassium Chloride 10 meq/ (Dextrose/Sodium Chloride) 1,005 mls @ 125 mls/hr IV.CONT .Q8H3M FEROZ Morphine Sulfate (Morphine Inj) 4 mg IV.PUSH Q3H PRN PRN Reason: PAIN 6-10;IF UNABLE TO TAKE PO Last Admin: 08/03/18 17:19 Dose: 4 mg Morphine Sulfate (Morphine Inj) 4 mg IV.PUSH Q1H PRN PRN Reason: Pain Scale 7-10 (Intractable) Morphine Sulfate (Morphine Inj) 2 mg IV.PUSH Q3H PRN PRN Reason: PAIN 3-5; IF UABLE TO TAKE PO Naloxone HCl (Narcan Inj) 0.4 mg IV.PUSH UNSCH PRN PRN Reason: SEE LABEL COMMENTS Ondansetron HCl (Zofran Inj) 4 mg IV.PUSH Q6H PRN PRN Reason: NAUSEA OR VOMITING Sodium Chloride (Ns Flush) 2 ml IV.FLUSH PRN PRN PRN Reason: FLUSH AFTER USING IV ACCESS Last Admin: 08/03/18 12:02 Dose: 2 ml Exam Vital signs: Vital Signs 08/03/18 11:17 08/03/18 12:35 08/03/18 15:00 Temperature 97.4 F L Pulse Rate 93 H 70 72 Respiratory Rate 22 18 18 Blood Pressure 127/58 L 106/53 L 130/57 L Pulse Oximetry 100 99 99 08/03/18 16:00 08/03/18 16:30 Temperature 97.7 F Pulse Rate 70 70 Respiratory Rate 18 18 Blood Pressure 138/64 129/61 Pulse Oximetry 97 100 Intake & Output 08/02/18 08/03/18 08/03/18 18:59 06:59 18:59 Intake Total 1000 / 1000 Balance 1000 / 1000 Weight 57.153 kg Intake: IV 1000 / 1000 NS Inj 1,000 ML @ Wide Open IV. 1000 / 1000 SIG BOLUS ONE Rx#:[id number] Other: Date of Last Bowel Movement 08/02/18 Narrative: GENERAL: Very pleasant 47 year old female resting in bed in no acute distress. SKIN: Warm and dry. She has several tattoos. HEAD: Atraumatic. Normocephalic. EYES: Pupils equal and round. No scleral icterus. No injection or drainage. ENT: No nasal bleeding or discharge. Mucous membranes pink and moist. NECK: Trachea midline. CARDIOVASCULAR: Regular rate and rhythm. RESPIRATORY: No accessory muscle use. Clear to auscultation. Breath sounds equal bilaterally. GASTROINTESTINAL: Abdomen soft, nondistended. Epigastric tenderness. Faint laparoscopic scars. Faint RLQ scar. No hernias. MUSCULOSKELETAL: Extremities without clubbing, cyanosis, or edema. No obvious deformities. NEUROLOGICAL: Awake and alert. No obvious cranial nerve deficits. Motor grossly within normal limits. Five out of 5 muscle strength in the arms and legs. Normal speech. PSYCHIATRIC: Appropriate mood and affect; insight and judgment normal. Results - Labs 08/04/18 06:33 08/04/18 06:33 Laboratory Results WBC 17.0 th/mm3 (4.0-11.0) H 08/03/18 12:00 RBC 4.91 mil/mm3 (4.00-5.30) 08/03/18 12:00 Hgb 14.9 gm/dL (11.6-15.3) 08/03/18 12:00 Hct 44.7 % (35.0-46.0) 08/03/18 12:00 MCV 91.1 fL (80.0-100.0) 08/03/18 12:00 MCH 30.4 pg (27.0-34.0) 08/03/18 12:00 MCHC 33.4 % (32.0-36.0) 08/03/18 12:00 RDW 13.6 % (11.6-17.2) 08/03/18 12:00 Plt Count 267 th/mm3 (150-450) 08/03/18 12:00 MPV 9.3 fL (7.0-11.0) 08/03/18 12:00 Neut % (Auto) 92.4 % (16.0-70.0) H 08/03/18 12:00 Lymph % (Auto) 5.2 % (9.0-44.0) L 08/03/18 12:00 [place] % (Auto) 2.3 % (0.0-8.0) 08/03/18 12:00 Eos % (Auto) 0.0 % (0.0-4.0) 08/03/18 12:00 Baso % (Auto) 0.1 % (0.0-2.0) 08/03/18 12:00 Neut # (Auto) 15.7 th/mm3 (1.8-7.7) H 08/03/18 12:00 Lymph # (Auto) 0.9 th/mm3 (1.0-4.8) L 08/03/18 12:00 [place] # (Auto) 0.4 th/mm3 (0.0-0.9) 08/03/18 12:00 Eos # (Auto) 0.0 th/mm3 (0.0-0.4) 08/03/18 12:00 Baso # (Auto) 0.0 th/mm3 (0.0-0.2) 08/03/18 12:00 WBC Differential . 08/03/18 12:00 Differential Comment Auto diff final 08/03/18 12:00 Sodium 135 meq/L (136-145) L 08/03/18 12:00 Potassium 4.8 meq/L (3.5-5.1) 08/03/18 12:00 Chloride 103 meq/L (98-107) 08/03/18 12:00 Carbon Dioxide 18.8 meq/L (21.0-32.0) L 08/03/18 12:00 Anion Gap 13 meq/L (5-15) 08/03/18 12:00 BUN 9 mg/dL (7-18) 08/03/18 12:00 Creatinine 0.84 mg/dL (0.50-1.00) 08/03/18 12:00 Estimated GFR 72 mL/min (>89) L 08/03/18 12:00 Random Glucose 111 mg/dL (74-106) H 08/03/18 12:00 Calcium 9.8 mg/dL (8.5-10.1) 08/03/18 12:00 Total Bilirubin 1.1 mg/dL (0.2-1.0) H 08/03/18 12:00 AST 42 U/L (15-37) H 08/03/18 12:00 ALT 24 U/L (10-53) 08/03/18 12:00 Alkaline Phosphatase 58 U/L (45-117) 08/03/18 12:00 Total Protein 9.0 g/dL (6.4-8.2) H 08/03/18 12:00 Albumin 4.4 g/dL (3.4-5.0) 08/03/18 12:00 Lipase 116 U/L (73-393) 08/03/18 12:00 Urine Color Yellow (Yellw/Straw) 08/03/18 12:30 Urine Clarity Hazy (Clear) H 08/03/18 12:30 Urine pH 7.0 (5.0-8.5) 08/03/18 12:30 Ur Specific [place] 1.025 (1.002-1.035) 08/03/18 12:30 Urine Protein 30 mg/dL (Neg-Trace) H 08/03/18 12:30 Urine Glucose (UA) Negative mg/dL (Negative) 08/03/18 12:30 Urine Ketones 80 or greater mg/dL (Negative) H 08/03/18 12:30 Urine Occult Blood Negative (Negative) 08/03/18 12:30 Urine Nitrate Negative (Negative) 08/03/18 12:30 Urine Bilirubin Negative (Negative) 08/03/18 12:30 Urine Urobilinogen Less than 2 mg/dL (Less than 2) 08/03/18 12:30 Ur Leukocyte Esterase Trace (Negative) H 08/03/18 12:30 Urine RBC 6 /hpf (0-3) H 08/03/18 12:30 Urine WBC 3 /hpf (0-5) 08/03/18 12:30 Ur Squamous Epith Cells 3 /hpf (0-5) 08/03/18 12:30 Urine Bacteria Rare /hpf (None) H 08/03/18 12:30 Urine Mucus Few /lpf (Occasional) H 08/03/18 12:30 Micro UA Comment Culture not ind 08/03/18 12:30 Ur Microscopic Review Not Reportable 08/03/18 12:30 Urine Culture Comments Culture not ind 08/03/18 12:30 Impressions Abdomen/Pelvis CT 08/03/18 11:28 CONCLUSION: 1. Distal small bowel obstruction with a focal transition point within the right hemipelvis involving the distal ileum approaching the terminal ileum. No obstructing mass is observed. No free air. Trace amount of ascites. - Imaging CT scan - abdomen: image reviewed Assessment and Plan - Assessment (1) Small bowel obstruction Code(s): K56.609 - Unspecified intestinal obstruction, unspecified as to partial versus complete obstruction Status: Acute Plan: 47 year old female with acute onset of abdominal pain; CT findings of SBO -Repeat KUB in AM -NPO -IVF -Repeat labs in AM -May need SBFT in the next 24-48 hours -Will attempt nonoperative treatment at this time -Thank you for this consult; We will continue to follow - Plan Discussed Condition With: Dr. Latosha Block RN Ms. Vasquez - Attending Attestation The exam, history, and the medical decision-making described in the above note were completed with the assistance of the mid-level provider. I reviewed and agree with the findings presented. I attest that I had a [id number] encounter with the patient on the same day, and personally performed and documented my assessment and findings in the medical record. patient with SBO, adhesive abdominal exam stable, no peritonitis no signs of bowel ischemia, I recommend non-op mgmt will follow
[2018-08-03] MEDS: Potassium Chloride Inj 10 MEQ in Dextrose 5%/NaCl 0.9% Inj 1,000 ML IV.CONT SCH (19:07)
[2018-08-04] MEDS: Morphine Inj 4 MG/ML Vial IV.PUSH PRN ×6 (00:20→20:50)
[2018-08-04] MEDS: Potassium Chloride Inj 10 MEQ in Dextrose 5%/NaCl 0.9% Inj 1,000 ML IV.CONT SCH ×2 (03:39→17:27)
[2018-08-04 07:12] LABS: Baso % (Auto) 0.4 % (0.0-2.0); Eos # (Auto) 0.1 th/mm3 (0.0-0.4); Eos % (Auto) 2.1 % (0.0-4.0); Hematocrit 34.7 % (35.0-46.0); Hemoglobin 11.6 gm/dL (11.6-15.3); Lymph # (Auto) 2.2 th/mm3 (1.0-4.8); Lymph % (Auto) 33.6 % (9.0-44.0); Mean Corpuscular HGB Conc 33.5 % (32.0-36.0); Mean Corpuscular Hemoglobin 30.7 pg (27.0-34.0); Mean Corpuscular Volume 91.6 fL (80.0-100.0); Mean Platelet Volume 8.9 fL (7.0-11.0); Mono # (Auto) 0.6 th/mm3 (0.0-0.9); Mono % (Auto) 8.9 % (0.0-8.0); Neut # (Auto) 3.6 th/mm3 (1.8-7.7); Platelet Count 186 th/mm3 (150-450); Red Blood Count 3.79 mil/mm3 (4.00-5.30); Red Cell Distribution Width 13.6 % (11.6-17.2); White Blood Count 6.6 th/mm3 (4.0-11.0)
--- NOTE | 2018-08-04 07:15 | XR ---
EXAM DATE: 08/04/2018 7:05 AM EDT AGE/SEX: 47 years / Female INDICATIONS: Nausea, vomiting, pain upper abdomen, evaluate small bowel obstruction CLINICAL DATA: This is the patient's subsequent encounter. Patient reports that signs and symptoms h ave been present for 2 days and indicates a pain score of 6/10. MEDICAL/SURGICAL HISTORY: None. Appendectomy. COMPARISON: [facility] [place]BDOMEN KUB ONLY, 10/01/2012. . FINDINGS: The abdominal bowel gas pattern is normal. No abnormal masses, calcifications, or organomegaly is s een. The osseous structures are unremarkable. CONCLUSION: No evidence of acute process. Electronically signed by: Toño Sanabria MD 08/04/2018 7:14 AM EDT
[2018-08-04 07:42] LABS: Alanine Aminotransferase 14 U/L (10-53); Albumin 2.8 g/dL (3.4-5.0); Alkaline Phosphatase 33 U/L (45-117); Anion Gap 8 meq/L (5-15); Aspartate Aminotransferase 12 U/L (15-37); Blood Urea Nitrogen 6 mg/dL (7-18); Calcium 7.5 mg/dL (8.5-10.1); Carbon Dioxide 24.7 meq/L (21.0-32.0); Chloride 112 meq/L (98-107); Glomerular Filtration Rate Greater Than 89 mL/min (>89); Glucose,Random 108 mg/dL (74-106); Potassium 3.8 meq/L (3.5-5.1); Sodium 145 meq/L (136-145)
--- NOTE | 2018-08-04 08:58 | P.PN ---
Subjective Interval history: Complaints of headache. She is in bed. With diffuse abdominal pain. Some nausea no vomiting. She complains of severe headaches. No fever or chills. Refusing labs at this time Physical Exam Vital signs: Vital Signs 08/03/18 11:17 08/03/18 12:35 08/03/18 15:00 Temperature 97.4 F L Pulse Rate 93 H 70 72 Respiratory Rate 22 18 18 Blood Pressure 127/58 L 106/53 L 130/57 L Pulse Oximetry 100 99 99 08/03/18 16:00 08/03/18 16:30 08/03/18 20:00 Temperature 97.7 F 98.1 F Pulse Rate 70 70 65 Respiratory Rate 18 18 16 Blood Pressure 138/64 129/61 136/65 Pulse Oximetry 97 100 100 08/04/18 00:00 08/04/18 08:00 08/04/18 08:03 Temperature 98.2 F 97.9 F Pulse Rate 66 74 Respiratory Rate 16 18 16 Blood Pressure 109/58 L 126/64 Pulse Oximetry 100 100 Intake & Output 08/03/18 08/04/18 08/04/18 18:59 06:59 18:59 Intake Total 1000 / 1000 1005 / 1005 Balance 1000 / 1000 1005 / 1005 Weight 57.153 kg 60.8 kg Intake: IV 1000 / 1000 1005 / 1005 KCl Inj 10 MEQ In D5W/Normal 1005 / 1005 Saline Inj 1,000 ML @ 125 mls/ hr IV.CONT .Q8H3M [facility] Rx#: [id number] NS Inj 1,000 ML @ Wide Open IV. 1000 / 1000 SIG BOLUS ONE Rx#:[id number] Other: # Voids 2 Date of Last Bowel Movement 08/02/18 08/02/18 Narrative: GENERAL: Patient sitting up in bed. Appears uncomfortable complaints of headache CARDIOVASCULAR: Regular rate and rhythm. RESPIRATORY: No accessory muscle use. Clear to auscultation. Breath sounds equal bilaterally. GASTROINTESTINAL: Abdomen soft, nondistended. Hepatic and splenic margins not palpable. Tenderness to moderate palpation diffusely. Patient has received pain medication. MUSCULOSKELETAL: Extremities without clubbing, cyanosis, or edema. No obvious deformities. NEUROLOGICAL: Awake and alert. No obvious cranial nerve deficits. Motor grossly within normal limits. Five out of 5 muscle strength in the arms and legs. Normal speech. PSYCHIATRIC: Appropriate mood and affect; insight and judgment normal. Results - Labs CBC & Chem 7: 08/04/18 06:33 08/04/18 06:33 Laboratory Results - last 24 hr 08/03/18 08/03/18 08/03/18 12:00 12:00 12:30 WBC 17.0 H RBC 4.91 Hgb 14.9 Hct 44.7 MCV 91.1 MCH 30.4 MCHC 33.4 RDW 13.6 Plt Count 267 MPV 9.3 Neut % (Auto) 92.4 H Lymph % (Auto) 5.2 L Drew % (Auto) 2.3 Eos % (Auto) 0.0 Baso % (Auto) 0.1 Neut # (Auto) 15.7 H Lymph # (Auto) 0.9 L Drew # (Auto) 0.4 Eos # (Auto) 0.0 Baso # (Auto) 0.0 WBC Differential . Differential Comment Auto diff final Sodium 135 L Potassium 4.8 Chloride 103 Carbon Dioxide 18.8 L Anion Gap 13 BUN 9 Creatinine 0.84 Estimated GFR 72 L Random Glucose 111 H Calcium 9.8 Total Bilirubin 1.1 H Direct Bilirubin Indirect Bilirubin AST 42 H ALT 24 Alkaline Phosphatase 58 Total Protein 9.0 H Albumin 4.4 Lipase 116 Urine Color Yellow Urine Clarity Hazy H Urine pH 7.0 Ur Specific Orange 1.025 Urine Protein 30 H Urine Glucose (UA) Negative Urine Ketones 80 or greater H Urine Occult Blood Negative Urine Nitrate Negative Urine Bilirubin Negative Urine Urobilinogen Less than 2 Ur Leukocyte Esterase Trace H Urine RBC 6 H Urine WBC 3 Ur Squamous Epith Cells 3 Urine Bacteria Rare H Urine Mucus Few H Micro UA Comment Culture not ind Ur Microscopic Review Not Reportable Urine Culture Comments Culture not ind 08/04/18 08/04/18 06:33 06:33 WBC 6.6 D RBC 3.79 L Hgb 11.6 D Hct 34.7 L MCV 91.6 MCH 30.7 MCHC 33.5 RDW 13.6 Plt Count 186 D MPV 8.9 Neut % (Auto) 55.0 Lymph % (Auto) 33.6 Drew % (Auto) 8.9 H Eos % (Auto) 2.1 Baso % (Auto) 0.4 Neut # (Auto) 3.6 Lymph # (Auto) 2.2 Drew # (Auto) 0.6 Eos # (Auto) 0.1 Baso # (Auto) 0.0 WBC Differential . Differential Comment Auto diff final Sodium 145 D Potassium 3.8 D Chloride 112 H D Carbon Dioxide 24.7 Anion Gap 8 BUN 6 L Creatinine 0.68 Estimated GFR Greater than 89 Random Glucose 108 H Calcium 7.5 L D Total Bilirubin 0.5 Direct Bilirubin 0.2 Indirect Bilirubin 0.3 AST 12 L ALT 14 Alkaline Phosphatase 33 L Total Protein 6.0 L D Albumin 2.8 L D Lipase Urine Color Urine Clarity Urine pH Ur Specific Orange Urine Protein Urine Glucose (UA) Urine Ketones Urine Occult Blood Urine Nitrate Urine Bilirubin Urine Urobilinogen Ur Leukocyte Esterase Urine RBC Urine WBC Ur Squamous Epith Cells Urine Bacteria Urine Mucus Micro UA Comment Ur Microscopic Review Urine Culture Comments - Imaging Impressions Abdomen/Pelvis CT 08/03/18 11:28 CONCLUSION: 1. Distal small bowel obstruction with a focal transition point within the right hemipelvis involving the distal ileum approaching the terminal ileum. No obstructing mass is observed. No free air. Trace amount of ascites. Abdomen X-Ray 08/04/18 06:00 CONCLUSION: No evidence of acute process. Assessment and Plan - Plan 47 year old female with acute onset of abdominal pain; CT findings of SBO Small bowel obstruction with suspected transition point on CT CT abdomen and pelvis personally reviewed which shows right lower quadrant transition point around the erythema of the cecum. Patient is uncertain about history of appendectomy. History of endometriosis, however not currently on her period n.p.o., IV fluids. Consult gen surg Repeat KUB in AM May need SBFT in the next 24-48 hours per surgical team Leukocytosis. Likely secondary to nausea and vomiting. Evidence of acute infection. Elevated bilirubin. No right upper quadrant tenderness. Could be Gilbert's syndrome. Will check bilirubin components. Metabolic acidosis. Starvation ketosis Anion gap 13., Dioxide 18.8 on admission Likely secondary to ketosis as seen on urine Discussed Condition With: Patient, nurse. DC when improved and cleared by gen surg
--- NOTE | 2018-08-04 09:45 | P.PNGS ---
Subjective Interval history: Resting in bed Upset that it took three sticks to get her labs today Physical Exam Vital signs: Vital Signs 08/03/18 11:17 08/03/18 12:35 08/03/18 15:00 Temperature 97.4 F L Pulse Rate 93 H 70 72 Respiratory Rate 22 18 18 Blood Pressure 127/58 L 106/53 L 130/57 L Pulse Oximetry 100 99 99 08/03/18 16:00 08/03/18 16:30 08/03/18 20:00 Temperature 97.7 F 98.1 F Pulse Rate 70 70 65 Respiratory Rate 18 18 16 Blood Pressure 138/64 129/61 136/65 Pulse Oximetry 97 100 100 08/04/18 00:00 08/04/18 08:00 08/04/18 08:03 Temperature 98.2 F 97.9 F Pulse Rate 66 74 Respiratory Rate 16 18 16 Blood Pressure 109/58 L 126/64 Pulse Oximetry 100 100 Intake & Output 08/03/18 08/04/18 08/04/18 18:59 06:59 18:59 Intake Total 1000 / 1000 1005 / 1005 Balance 1000 / 1000 1005 / 1005 Weight 57.153 kg 60.8 kg Intake: IV 1000 / 1000 1005 / 1005 KCl Inj 10 MEQ In D5W/Normal 1005 / 1005 Saline Inj 1,000 ML @ 125 mls/ hr IV.CONT .Q8H3M [facility] Rx#: [id number] NS Inj 1,000 ML @ Wide Open IV. 1000 / 1000 SIG BOLUS ONE Rx#:[id number] Other: # Voids 2 Date of Last Bowel Movement 08/02/18 08/02/18 Narrative: Alert and awake Abd: soft; mildly tender to palpation No edema Results - Labs 08/04/18 06:33 08/04/18 06:33 Assessment and Plan - Assessment (1) Small bowel obstruction Code(s): K56.609 - Unspecified intestinal obstruction, unspecified as to partial versus complete obstruction Status: Acute Plan: 47 year old female with acute onset of abdominal pain; CT findings of SBO -KUB shows no acute process -Will do SBFT today -IVF -Will attempt nonoperative treatment at this time -OOB and mobilize - Attending Attestation The exam, history, and the medical decision-making described in the above note were completed with the assistance of the mid-level provider. I reviewed and agree with the findings presented. I attest that I had a [id number] encounter with the patient on the same day, and personally performed and documented my assessment and findings in the medical record. patient with adhesive SBO Abdominal exam stable, no peritonitis non-operative management will follow
[2018-08-04] MEDS: Acetaminophen 325 MG Tablet PO PRN ×2 (12:14→17:25)
[2018-08-04] MEDS ORDERED: Diatrizoate Meglum/Diatrizoate Sod Liq 120 ML Bottle (for RAD diag) PO ONE (17:16)
--- NOTE | 2018-08-04 17:28 | FL ---
EXAM DATE: 08/04/2018 5:13 PM EDT AGE/SEX: 47 years / Female INDICATIONS: SBO. CLINICAL DATA: This is the patient's initial encounter. Patient reports that signs and symptoms have been present for 3 days and indicates a pain score of 5/10. MEDICAL/SURGICAL HISTORY: None. . Appendectomy [place] [facility] [place]. . FLUORO TIME: .6 IMAGE COUNT: 7 CONTRAST: Gastrografin FINDINGS: Preliminary film is unremarkable. The stomach is grossly unremarkable. Examination of the small bowel demonstrates normal mucosal pattern involving the jejunum and ileum. There is no evidence of mass or obstruction. No intraluminal filling defects are identified. Small bowel transit time is normal at 90 minutes. Fluoroscopy of the abdomen and terminal ileum demonstrat es no abnormality. CONCLUSION: Small bowel series within normal limits. Electronically signed by: Delvis Zapata MD 08/04/2018 5:27 PM EDT
[2018-08-04] MEDS: Melatonin 5 MG Tablet PO PRN (23:36)
[2018-08-05] MEDS: Potassium Chloride Inj 10 MEQ in Dextrose 5%/NaCl 0.9% Inj 1,000 ML IV.CONT SCH ×4 (00:53→18:05)
[2018-08-05] MEDS: Morphine Inj 4 MG/ML Vial IV.PUSH PRN ×4 (01:47→23:04)
--- NOTE | 2018-08-05 09:35 | P.PN ---
Subjective Interval history: She is in the chair. Less abdominal pain. Diet is advanced to clear liquid diet. Had diarrhea. No fever or chills. Tolerates clears. Nausea and vomiting resolved. Physical Exam Vital signs: Vital Signs 08/04/18 12:00 08/04/18 12:45 08/04/18 13:25 Temperature 97.7 F Pulse Rate 61 Respiratory Rate 18 16 18 Blood Pressure 132/60 Pulse Oximetry 100 08/04/18 20:00 08/05/18 00:00 08/05/18 08:00 Temperature 97.3 F L 97.8 F 97.9 F Pulse Rate 62 62 63 Respiratory Rate 18 18 17 Blood Pressure 145/65 H 106/51 L 139/70 Pulse Oximetry 100 100 100 Intake & Output 08/04/18 08/05/18 08/05/18 18:59 06:59 18:59 Intake Total 2004 1000 / 1000 Output Total 500 / 500 Balance 1505 / 1505 1000 / 1000 Weight 58.6 kg Intake: IV 2004 1000 / 1000 KCl Inj 10 MEQ In D5W/Normal 2004 1000 / 1000 Saline Inj 1,000 ML @ 125 mls/ hr IV.CONT .Q8H3M [facility] Rx#: [id number] Output: Urine 500 / 500 Other: Date of Last Bowel Movement 08/04/18 # Bowel Movements 4 Narrative: GENERAL: Patient is a pleasant 47-year-old female, appears in not acute distress. CARDIOVASCULAR: Regular rate and rhythm. RESPIRATORY: No accessory muscle use. Clear to auscultation. Breath sounds equal bilaterally. GASTROINTESTINAL: Abdomen soft, nondistended. Mild diffuse tenderness. No rebound. MUSCULOSKELETAL: Extremities without clubbing, cyanosis, or edema. No obvious deformities. NEUROLOGICAL: Awake and alert. No obvious cranial nerve deficits. Motor grossly within normal limits. Five out of 5 muscle strength in the arms and legs. Normal speech. PSYCHIATRIC: Appropriate mood and affect; insight and judgment normal. Results - Labs CBC & Chem 7: 08/04/18 06:33 08/04/18 06:33 - Imaging Impressions Small Bowel X-Ray 08/04/18 10:00 CONCLUSION: Small bowel series within normal limits. Assessment and Plan - Plan 47 year old female with acute onset of abdominal pain; CT findings of SBO Small bowel obstruction with suspected transition point on CT CT abdomen and pelvis personally reviewed which shows right lower quadrant transition point around the erythema of the cecum. Patient is uncertain about history of appendectomy. History of endometriosis, however not currently on her period Consult gen surg, following appreciated recommendations KUB reviewed s/p SBFT Patient improving, advance diet to clear liquid diet Leukocytosis. Likely secondary to nausea and vomiting. Evidence of acute infection. Elevated bilirubin. No right upper quadrant tenderness. Could be Gilbert's syndrome. Will check bilirubin components. Metabolic acidosis. Starvation ketosis Anion gap 13., Dioxide 18.8 on admission Likely secondary to ketosis as seen on urine Discussed Condition With: Patient, nurse. DC when improved and cleared by gen surg
[2018-08-05] MEDS: Acetaminophen 325 MG Tablet PO PRN ×2 (13:02→18:28)
--- NOTE | 2018-08-05 17:57 | P.PNGS ---
Subjective Patient reports: feels better, bowel movement Physical Exam Vital signs: Vital Signs 08/04/18 20:00 08/05/18 00:00 08/05/18 08:00 Temperature 97.3 F L 97.8 F 97.9 F Pulse Rate 62 62 63 Respiratory Rate 18 18 17 Blood Pressure 145/65 H 106/51 L 139/70 Pulse Oximetry 100 100 100 08/05/18 12:00 08/05/18 16:00 Temperature 97.7 F 98.1 F Pulse Rate 70 65 Respiratory Rate 17 18 Blood Pressure 135/63 136/63 Pulse Oximetry 100 100 Intake & Output 08/04/18 08/05/18 08/05/18 18:59 06:59 18:59 Intake Total 2004 1000 / 1000 1005 / 1005 Output Total 500 / 500 Balance 1505 / 1505 1000 / 1000 1005 / 1005 Weight 58.6 kg Intake: IV 2004 1000 / 1000 1005 / 1005 KCl Inj 10 MEQ In D5W/Normal 2004 1000 / 1000 1005 / 1005 Saline Inj 1,000 ML @ 125 mls/ hr IV.CONT .Q8H3M [facility] Rx#: [id number] Output: Urine 500 / 500 Other: Date of Last Bowel Movement 08/04/18 08/05/18 # Bowel Movements 4 - Constitutional no acute distress - Routine Abdominal Exam Present: soft, normoactive bowel sounds Assessment and Plan - Assessment (1) Small bowel obstruction Code(s): K56.609 - Unspecified intestinal obstruction, unspecified as to partial versus complete obstruction Status: Acute Plan: 47 year old female with acute SBO, now resolved -advance diet - DC tomorrow if tolerates PO and continue resolution
[2018-08-05] MEDS: Melatonin 5 MG Tablet PO PRN (23:04)
[2018-08-06] MEDS: Potassium Chloride Inj 10 MEQ in Dextrose 5%/NaCl 0.9% Inj 1,000 ML IV.CONT SCH ×2 (02:08→11:09)
[2018-08-06] MEDS: Morphine Inj 4 MG/ML Vial IV.PUSH PRN (09:36)
--- NOTE | 2018-08-06 10:40 | P.DS ---
Date of admission: 08/03/18 15:39 Primary care physician: No Primary Care Physician Brief History from admission: 39-year-old female with a history of endometriosis status post oratory laparotomy in the past who presents constant sharp nonradiating epigastric pain which began around 8 PM last night. She also endorses intractable nausea, nonbloody [id number] emesis, "hot flashes" however no measured fevers. Denies diarrhea or constipation. Denies chest pain or shortness of breath. Last menstrual period was 3 weeks ago. She reports possibly having an appendectomy at the time of her exploratory laparotomy in the past but she is not sure. DS: Diagnosis - Discharge Diagnosis (1) Small bowel obstruction Status: Acute (2) H/O exploratory laparotomy Status: Acute DS: Summary Hospital Course: 47 year old female with acute onset of abdominal pain; CT findings of SBO Small bowel obstruction with suspected transition point on CT CT abdomen and pelvis personally reviewed which shows right lower quadrant transition point around the erythema of the cecum. Patient is uncertain about history of appendectomy. History of endometriosis, however not currently on her period Consult gen surg, following appreciated recommendations KUB reviewed S/p SBFT Patient improved, tolerates food. Leukocytosis. Likely secondary to nausea and vomiting. No evidence of acute infection. Elevated bilirubin. No right upper quadrant tenderness. Could be Gilbert's syndrome. Repeat bili is normal Metabolic acidosis. Starvation ketosis Anion gap 13., Dioxide 18.8 on admission Likely secondary to ketosis as seen on urine. Resolved Cleared for DC by gen surg. Patient tolerates food. DC ella ein stable condition to follow up as OP with PCP and consultants. - Time Spent with Patient Total time spent providing and/or coordinating discharge services: Greater than 30 minutes Exam Vital signs: Vital Signs 08/05/18 12:00 08/05/18 16:00 08/05/18 20:00 Temperature 97.7 F 98.1 F 97.7 F Pulse Rate 70 65 60 Respiratory Rate 17 18 18 Blood Pressure 135/63 136/63 126/59 L Pulse Oximetry 100 100 100 08/05/18 23:06 08/06/18 00:43 08/06/18 08:00 Temperature 97.4 F L 98.0 F Pulse Rate 58 L 69 Respiratory Rate 18 18 19 Blood Pressure 120/58 L 117/58 L Pulse Oximetry 98 98 Intake & Output 08/05/18 08/06/18 08/06/18 18:59 06:59 18:59 Intake Total 3205 / 3205 1760 / 1760 1000 / 1000 Balance 3205 / 3205 1760 / 1760 1000 / 1000 Weight 58.6 kg Intake: IV 3005 / 3005 1000 / 1000 1000 / 1000 KCl Inj 10 MEQ In D5W/Normal 3005 / 3005 1000 / 1000 1000 / 1000 Saline Inj 1,000 ML @ 125 mls/ hr IV.CONT .Q8H3M [facility] Rx#: [id number] Oral 200 / 200 760 / 760 Other: # Voids 3 Date of Last Bowel Movement 08/05/18 08/05/18 # Bowel Movements 0 Narrative: GENERAL: Patient is a pleasant 47-year-old female, appears in not acute distress. CARDIOVASCULAR: Regular rate and rhythm. RESPIRATORY: No accessory muscle use. Clear to auscultation. Breath sounds equal bilaterally. GASTROINTESTINAL: Abdomen soft, nondistended, nontender. No rebound. MUSCULOSKELETAL: Extremities without clubbing, cyanosis, or edema. No obvious deformities. NEUROLOGICAL: Awake and alert. No obvious cranial nerve deficits. Motor grossly within normal limits. Five out of 5 muscle strength in the arms and legs. Normal speech. PSYCHIATRIC: Appropriate mood and affect; insight and judgment normal. Results Procedures completed during hospitalization: no procedures - Impressions ITS Impressions Abdomen/Pelvis CT 08/03/18 11:28 CONCLUSION: 1. Distal small bowel obstruction with a focal transition point within the right hemipelvis involving the distal ileum approaching the terminal ileum. No obstructing mass is observed. No free air. Trace amount of ascites. Abdomen X-Ray 08/04/18 06:00 CONCLUSION: No evidence of acute process. Small Bowel X-Ray 08/04/18 10:00 CONCLUSION: Small bowel series within normal limits. Discharge Plan - Discharge Disposition Patient Disposition: 01 Discharge Home - Discharge Condition Condition: Stable - Discharge Order Discharge Orders: Discharge Order (Routine); Ordered 08/06/18 Ordered By: Halima Basurto - Discharge Details Anticipated Discharge Date: 08/06/18 - Physicians Team Primary Care Provider: Primary Care Helen,No Attending Provider: Halima Basurto Other Providers: Waqas Reina MD
== END 2018-08-06 13:15 | disposition home or self-care (01) ==
LOC: NEPE 11:04 → NEDA 15:39 → N07 16:52
PROVIDERS: ADMIT Hospitalist; ATTEND Hospitalist

== ENCOUNTER 2018-09-29 06:17 | Inpatient (IN) ==
[2018-09-29] MEDS ORDERED: Metoprolol Tartrate 25 MG Tablet PO ONE (06:37)
[2018-09-29] MEDS ORDERED: Chlorhexidine Gluconate 2% 1 Pack (2 Cloths) TOPICAL ONE (06:37)
[2018-09-29] MEDS ORDERED: Sodium Chlor 0.9% Inj 500 ML IV.SIG SCH (07:00)
[2018-09-29] MEDS ORDERED: ceFAZolin 2 GM Premix Inj 2 GM/50 ML PIGGYBACK IV.SIG SCH (07:00)
[2018-09-29] MEDS ORDERED: Bupivacaine Liposomal PF 1.3% Inj 20 ML Vial ONE (07:57)
[2018-09-29] MEDS ORDERED: HYDROmorphone PF Inj 1 MG/ML Ampul ONE (08:15)
[2018-09-29] MEDS ORDERED: Bupivacaine/Epinephrine 0.5% Inj 50 ML Vial ONE (08:28)
[2018-09-29] MEDS ORDERED: Phenylephrine/NS 1000 MCG/10ML Syringe IV.PUSH ONE (08:45)
[2018-09-29] MEDS ORDERED: Lidocaine PF 1% Inj 5 ML Syringe INFILTRATN ONE (08:45)
[2018-09-29] MEDS ORDERED: Succinylcholine Inj 100 MG/5 ML Syringe IV.PUSH ONE (08:45)
[2018-09-29] MEDS ORDERED: fentaNYL Citrate Inj 100 MCG/2 ML Ampul ONE (10:55)
[2018-09-29] MEDS ORDERED: *morphine SULFATE 4 MG/ML PERIprocedure ONLY ONE (11:02)
[2018-09-29] MEDS ORDERED: *HYDROmorphone PF Inj 1 MG/ML Ampul PERIprocedural Use ONLY ONE (11:13)
[2018-09-29] MEDS ORDERED: Ketorolac Inj 30 MG/ML (IVP) Vial ONE (11:15)
--- NOTE | 2018-09-29 11:52 | MP ---
cc: Waqas Reina MD DATE OF OPERATION: 09/29/2018 PREOPERATIVE DIAGNOSIS: 1. Recurrent small bowel obstruction. 2. History of previous pelvic surgery. POSTOPERATIVE DIAGNOSES: 1. History of small bowel obstruction. 2. History of previous pelvic surgery. 3. Small localized volvulus of distal ileum in the pelvis, facilitated by at multiple adhesions along the right pelvic sidewall. PROCEDURE PERFORMED: 1. Diagnostic laparoscopy. 2. Lysis of adhesions. 3. Devolvulizing local area of volvulized small bowel. 4. Placement of anti-adhesion barrier. ANESTHESIA: General and regional TAP block. ATTENDING SURGEON: Waqas Reina MD BED TEACHER: Staff. ESTIMATED BLOOD LOSS: Less than 10 mL COMPLICATIONS: None. FINDINGS: 1. Overall, very few adhesions in the patient's abdomen. 2. Status post appendectomy. 3. Some dense adhesions from the very distal ileum along the right pelvic sidewall. 4. Local 360-degree volvulized distal ileum just proximal to the adhesion, likely facilitated by the adhesion. 5. Anti-adhesion barrier, Interceed product placed at area of adhesions on the pelvic sidewall to prevent recurrent pelvic adhesions. INDICATIONS FOR PROCEDURE: The patient is a 47-year-old female who has had a history of previous pelvic [employer] surgery remotely. The patient has had multiple episodes of small-bowel obstruction treated nonoperatively. The patient did have some continued discomfort, especially with eating large meals or high-fiber diet. She was evaluated in the office and a discussion took place between myself and the patient and her about treatment options including laparoscopic versus open lysis of adhesions. Risks, benefits and alternatives of surgery were discussed and all of their questions were answered to their satisfaction. They agreed to undergo the procedure. DESCRIPTION OF PROCEDURE: The patient was taken to the operating room at [facility], placed under general endotracheal anesthesia. The patient's abdomen was prepped and draped in a sterile fashion. Timeout was performed. The abdomen was entered through a Meagan type technique below the umbilicus. We incised the skin and the fascia under direct visualization. We directly entered the abdomen bluntly with a hemostat and placed a 10 mm balloon trocar into the abdomen under direct visualization. We insufflated the abdomen and surveyed the abdomen. There was no evidence of any complication from our entry. There is very little evidence of any intra-abdominal pathology at that point. We placed 2 additional ports, which were 5 mm ports, one in the right lower quadrant and one in the left lower quadrant, both under direct visualization of the laparoscope. We were able to at this point in time turn our attention towards diagnostic laparoscopy. The liver, stomach, gallbladder, visualized portions of the colon were essentially normal. Small bowel has some intimal dilation throughout. We turned our attention towards the distal ileum to look around the bowel from distal to proximal. We found the cecum. This was status post appendectomy. We started lysing some filmy adhesions to mobilize the distal ileum, bring it up out of the pelvis and encountered some dense adhesions from the distal ileum against the pelvic sidewall. We gently took these down with the EndoShears. There was no evidence of any bowel injury or bleeding or any complication from taking these adhesions down. These were essentially the only adhesions in the patient's abdomen and with using DeBakey bowel graspers, we were able to continue to run the bowel. We did note that right after this adhesion there was a 360 or greater volvulus of the small bowel. Right before this adhesion and implying that this adhesion was acting as access for this malposition of the small bowel. We elected to perform a full small bowel evaluation from the ligament of Treitz, proximal to distal. This was essentially normal until we got to the distal ileum and as we returned the bowel to its normal anatomic position, this twisting was resolved completely. I felt like this twisting was caused by the adhesion and there was otherwise no other abnormality anatomically and the adhesion was completely treated. I did place some Interceed anti-adhesion barrier on the right pelvic sidewall to prevent re-adhesion into the pelvic sidewall by any viscera. I did irrigate out the pelvis and all succinate was clear. At this point in time, I felt like the patient had no surgical adhesions in her abdomen and felt there was no further surgical intervention required or indicated. We turned towards closure. removed all ports and the visualization of the laparoscope and expressed pneumoperitoneum. We closed the Meagan fascia entry site with a [id number] 0 Vicryl suture. We closed the skin with 4-0 Monocryl and Dermabond. The patient was discontinued from anesthesia and taken to the PACU in stable condition. The patient tolerated the procedure well and there were no apparent complications. All counts were correct and I was present and scrubbed for the entire procedure. Waqas Reina MD AWG/ct , 11:13 AM , 11:26 AM
[2018-09-29 12:25] VITALS: RESP 16; O2SAT 100
[2018-09-29 13:17] VITALS: BP 112/62; PULSE 84; TEMP 97.4
== END 2018-09-29 13:14 | disposition home or self-care (01) ==
LOC: HSDI 06:17 → EDSTATUS 08:30
PROVIDERS: ADMIT Surgery; ATTEND Surgery